=== PATIENT | male | born 1970 | race Caucasian/White ===

== ENCOUNTER 2023-08-13 12:32 | Emergency (ER) | payer MEDICAID ==
[~2023-08-13] VITALS: Ht 177.8 cm; Wt 91.0 kg
[2023-08-13 12:35] VITALS: BP 138/95; PULSE 98; RESP 16; TEMP 98.2; O2SAT 100
[2023-08-13 14:08] LABS: BASOPHILS % 0.8 % (0.0-2.0); EOSINOPHILS % 2.5 % (0.0-5.0); HEMATOCRIT. 34.3 % (42.0-52.0); HEMOGLOBIN. 11.6 g/dL (14.0-18.0); LYMPHOCYTES % 53.3 % (20.0-50.0); MEAN CORPUSCULAR HEMOGLOBIN 31.8 pg (28.0-32.0); MEAN CORPUSCULAR HGB CONC 33.7 g/dL (31.0-37.0); MEAN CORPUSCULAR VOLUME 94.3 fL (80.0-94.0); MEAN PLATELET VOLUME 9.9 fl (7.4-10.4); MONOCYTES % 8.6 % (2.0-8.0); NEUTROPHILS % 34.8 % (40.0-76.0); PLATELET 62 x1000/uL (130-400); RED BLOOD CELL COUNT 3.64 mill/uL (4.7-6.1); RED CELL DISTRIBUTION WIDTH 20.9 % (11.6-14.6); WHITE BLOOD COUNT 2.2 x1000/uL (4.5-11.0)
[2023-08-13 14:38] LABS: ALANINE AMINOTRANSFERASE 12 IU/L (10-49); ALBUMIN 3.9 g/dL (3.2-4.8); ASPARTATE AMINOTRANSFERASE 26 IU/L (<34); BILIRUBIN TOTAL 0.4 mg/dL (0.1-1.0); CALCIUM 8.2 mg/dL (8.7-10.4); CARBON DIOXIDE 31 mEq/L (21-32); CHLORIDE 107 mEq/L (98-107); CREATININE 0.5 mg/dL (0.6-1.3); ETHANOL BLOOD 307 mg/dL (<10); GLUCOSE 102 mg/dL (70-105); POTASSIUM 3.7 mEq/L (3.5-5.1); SODIUM 144 mEq/L (136-145); TROPONIN I HIGH SENSITIVITY 4 ng/L (3.0-53); UREA NITROGEN BLOOD 10 mg/dL (9-23)
== END 2023-08-13 14:28 | disposition left against medical advice (07) ==
LOC: ER 12:57
DX: F10.129 Alcohol abuse with intoxication, unspecified (principal); E11.9 Type 2 diabetes mellitus without complications; Y90.8 Blood alcohol level of 240 mg/100 ml or more
CPT/HCPCS: 36415; 71045; 80053; 80320; 82962; 84484; 85025; 99285; G0480

== ENCOUNTER 2023-09-21 15:06 | Emergency (ER) | payer MEDICAID ==
[~2023-09-21] VITALS: Ht 170.2 cm; Wt 70.0 kg
[2023-09-21 15:24] VITALS: O2SAT 98
[2023-09-21 15:59] LABS: BASOPHILS % 0.4 % (0.0-2.0); EOSINOPHILS % 1.5 % (0.0-5.0); HEMATOCRIT. 37.5 % (42.0-52.0); LYMPHOCYTES % 30.6 % (20.0-50.0); MEAN CORPUSCULAR HEMOGLOBIN 30.6 pg (28.0-32.0); MEAN CORPUSCULAR VOLUME 95.5 fL (80.0-94.0); MEAN PLATELET VOLUME 11.6 fl (7.4-10.4); MONOCYTES % 8.1 % (2.0-8.0); NEUTROPHILS % 59.4 % (40.0-76.0); PLATELET 53 x1000/uL (130-400); RED BLOOD CELL COUNT 3.93 mill/uL (4.7-6.1); RED CELL DISTRIBUTION WIDTH 17.4 % (11.6-14.6)
[2023-09-21] MEDS ORDERED: IBUPROFEN 400MG TABLET PO ONE (16:00)
[2023-09-21] MEDS ORDERED: ACETAMINOPHEN 325MG TABLET PO ONE (16:00)
[2023-09-21 16:12] LABS: ALANINE AMINOTRANSFERASE 11 IU/L (10-49); ALBUMIN 4.4 g/dL (3.2-4.8); ASPARTATE AMINOTRANSFERASE 27 IU/L (<34); BILIRUBIN TOTAL 0.3 mg/dL (0.1-1.0); CALCIUM 8.6 mg/dL (8.7-10.4); CARBON DIOXIDE 26 mEq/L (21-32); CHLORIDE 108 mEq/L (98-107); CREATININE 0.7 mg/dL (0.6-1.3); ETHANOL BLOOD 291 mg/dL (<10); GLUCOSE 68 mg/dL (70-105); POTASSIUM 4.1 mEq/L (3.5-5.1); PROTEIN TOTAL 8.4 g/dL (6.0-8.3); SODIUM 142 mEq/L (136-145); UREA NITROGEN BLOOD 14 mg/dL (9-23)
[2023-09-21] MEDS ORDERED: ACETAMINOPHEN 325MG TABLET PO NR (18:00)
[2023-09-21] MEDS ORDERED: IBUPROFEN 400MG TABLET PO NR (18:00)
[2023-09-21 18:14] VITALS: BP 138/93; PULSE 101; RESP 18
[2023-09-21 18:15] VITALS: TEMP 97.8
== END 2023-09-21 21:07 | disposition home or self-care (01) ==
LOC: ER 15:06
DX: M79.10 Myalgia, unspecified site (principal); M25.562 Pain in left knee; E11.9 Type 2 diabetes mellitus without complications; F10.229 Alcohol dependence with intoxication, unspecified; Y90.8 Blood alcohol level of 240 mg/100 ml or more
CPT/HCPCS: 36415; 73562; 80053; 80320; 85025; 99291; G0480

== ENCOUNTER 2023-11-08 14:14 | Emergency (ER) | payer MEDICAID ==
[~2023-11-08] VITALS: Ht 170.2 cm; Wt 75.0 kg
[~2023-11-08 14:14] MED LIST: CHLO25CA11 PO; LIP40 PO; METO-539 PO; THIA100T72 PO
[2023-11-08 14:16] VITALS: BP 110/72; PULSE 88; RESP 16; TEMP 98.8; O2SAT 99
[2023-11-08] MEDS ORDERED: DICYCLOMINE 10 MG/5 ML ORAL SYR PO STA (14:21)
[2023-11-08 15:01] LABS: BASOPHILS % 0.5 % (0.0-2.0); EOSINOPHILS % 1.6 % (0.0-5.0); HEMATOCRIT. 32.1 % (42.0-52.0); HEMOGLOBIN. 10.9 g/dL (14.0-18.0); MEAN CORPUSCULAR HEMOGLOBIN 30.8 pg (28.0-32.0); MEAN CORPUSCULAR VOLUME 90.7 fL (80.0-94.0); MEAN PLATELET VOLUME 9.6 fl (7.4-10.4); MONOCYTES % 7.3 % (2.0-8.0); NEUTROPHILS % 40.6 % (40.0-76.0); PLATELET 61 x1000/uL (130-400); RED BLOOD CELL COUNT 3.53 mill/uL (4.7-6.1); WHITE BLOOD COUNT 3.1 x1000/uL (4.5-11.0)
[2023-11-08 15:13] LABS: INR 0.9; PARTIAL THROMBOPLASTIN TIME 24.8 sec (23.4-31.0); PROTHROMBIN TIME 10.6 sec (9.6-11.0)
[2023-11-08 15:22] LABS: ALANINE AMINOTRANSFERASE 14 IU/L (10-49); ALBUMIN 3.8 g/dL (3.2-4.8); ASPARTATE AMINOTRANSFERASE 30 IU/L (<34); BILIRUBIN TOTAL 0.4 mg/dL (0.1-1.0); CALCIUM 7.5 mg/dL (8.7-10.4); CARBON DIOXIDE 30 mEq/L (21-32); CHLORIDE 108 mEq/L (98-107); CREATININE 0.5 mg/dL (0.6-1.3); ETHANOL BLOOD 369 mg/dL (<10); GLUCOSE 86 mg/dL (70-105); POTASSIUM 3.4 mEq/L (3.5-5.1); PROTEIN TOTAL 7.4 g/dL (6.0-8.3); SODIUM 142 mEq/L (136-145); UREA NITROGEN BLOOD 10 mg/dL (9-23)
[2023-11-08 15:35] LABS: TROPONIN I HIGH SENSITIVITY < 4 ng/L (3.0-53)
[2023-11-08] MEDS: DICYCLOMINE HCL 10MG CAPSULE PO SCH (17:27)
[2023-11-08] MEDS: ONDANSETRON 4MG ODT PO STA (17:29)
[2023-11-08] MEDS: MAGNESIUM/ALUMINUM HYDROXIDE/SIMETHICONE 30ML UDC PO NR (17:29)
[2023-11-08] MEDS: MAGNESIUM/ALUMINUM HYDROXIDE/SIMETHICONE 30ML UDC PO STA (17:29)
[2023-11-08] MEDS: ONDANSETRON 4MG ODT PO NR (17:30)
== END 2023-11-09 04:57 | disposition home or self-care (01) ==
LOC: ER 14:14
DX: F10.129 Alcohol abuse with intoxication, unspecified (principal); R07.89 Other chest pain; E11.9 Type 2 diabetes mellitus without complications; Y90.8 Blood alcohol level of 240 mg/100 ml or more
CPT/HCPCS: 80053; 80320; 83690; 85025; 85610; 85730; 84484; 36415; 71045; 93005; 99285; Q0162; G0480